=== PATIENT | female | born 1995 | race Caucasian/White ===

== ENCOUNTER 2018-12-14 12:06 | Emergency (ER) | payer BC ==
[2018-12-14] MEDS ORDERED: Dexamethasone 4 mg/ml Vial ONE (12:45)
[2018-12-14] MEDS ORDERED: Famotidine 20 MG TAB ONE (12:45)
[2018-12-14] MEDS ORDERED: diphenhydrAMINE 25 MG CAP ONE (12:45)
== END 2018-12-14 14:00 | disposition home or self-care (01) ==
LOC: ERS 12:06
DX: L50.9 Urticaria, unspecified (principal)
CPT/HCPCS: 99283; J1100; Q0163